=== PATIENT | male | born 1970 | race Caucasian/White ===

== ENCOUNTER 2025-04-21 14:26 | Outpatient (REF) | payer OTHER, SELFPAY ==
--- NOTE | 2025-04-21 | EMG_ITS ---
Chief complaint: Numbness on left fingers History of left carpal tunnel release 2019. History of ACDF, C5-6? Patient can not remember exact level. Reason for referral: Evaluate for ulnar neuropathy versus carpal tunnel Referred by: Analisa MARIEE Procedure done: Left upper extremity NCS/EMG Precautions and/or limitations: Previous cervical surgery The limb temperature was monitored continuously and remained between 32-36 degrees C during the performance of the NCS. Ulnar motor NCS was performed with moderate elbow flexion between 70-90 degrees, with across-elbow distance of 10 cm. Nerve Conduction Studies Anti Sensory Summary Table ?Stim Site NR Onset (ms) Norm Onset (ms) Peak (ms) Norm Peak (ms) O-P Amp (?V) Norm O-P Amp Site1 Site2 Delta-0 (ms) Dist (cm) Gorge (m/s) Norm Gorge (m/s) Left Median Anti Sensory (2nd Digit) Wrist ? 3.7 4.4 <3.6 24.9 >10 Wrist 2nd Digit 3.7 14.0 38 Left Radial Anti Sensory (Thumb) Forearm ? 1.6 2.2 <3.1 32.9 Forearm Thumb 1.6 0.0 Left Ulnar Anti Sensory (5th Digit) Wrist ? 2.9 3.8 <3.7 5.2 >15.0 Wrist 5th Digit 2.9 14.0 48 Motor Summary Table ?Stim Site NR Onset (ms) Norm Onset (ms) O-P Amp (mV) Norm O-P Amp iAmp (mV) Amp (1st) (%) Site1 Site2 Delta-0 (ms) Dist (cm) Gorge (m/s) Norm Gorge (m/s) Left Median Motor (Abd Poll Brev) Wrist ? 4.5 <3.9 11.6 >4.5 13.4 100.0 Elbow Wrist 3.7 21.0 57 >45 Elbow ? 8.2 11.8 14.3 101.7 Left Ulnar Motor (Abd Dig Minimi) Wrist ? 3.4 <3.0 8.3 >5 10.6 100.0 B Elbow Wrist 3.6 21.0 58 >45 B Elbow ? 7.0 6.6 8.6 79.5 A Elbow B Elbow 4.6 10.0 22 >45 A Elbow ? 11.6 7.2 8.6 86.7 EMG ?Side Muscle Nerve Root Ins Act Fibs Psw Amp Dur Poly Recrt Int Pat Comment Left 1stDorInt Ulnar C8-T1 Nml Nml Nml Nml Nml 0 Nml Complete Left FlexCarpiUln Ulnar C8,T1 Nml Nml Nml Nml Nml 0 Nml Complete Left Biceps Musculocut C5-6 Nml Nml Nml Nml Nml 0 Nml Complete Left Triceps Radial C6-7-8 Nml Nml Nml Incr Incr 0 Nml Complete Left Deltoid Axillary C5-6 Nml Nml Nml Incr Incr 0 Nml Complete FINDINGS: Left median motor nerve showed prolonged distal latency, normal amplitude and normal conduction velocity. Left ulnar motor nerve showed prolonged distal latency, normal amplitude and slow conduction velocity across the elbow. Left median sensory nerve showed prolonged peak latency. Left ulnar sensory nerve showed small amplitude and prolonged peak latency. All other nerves tested were within normal. Concentric needle EMG was performed in selected muscles of the left upper extremity. Study revealed signs of electric abnormalities as shown in the table above. Left deltoids and biceps showed increased duration and amplitude. IMPRESSION: 1. This is an abnormal study. 2. 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 3. There is electrodiagnostic evidence for left median neuropathy at the wrist. Comparison with pre-surgery EMG would be helpful. 4. Chronic reinnervation changes seen on C5-6 innervated muscles, suggesting either past or chronic C5-6 radiculopathy. CLINICAL COMMENT: Comparison with previous EMG would be helpful. Past EMG was not available for my review. Thank you for your kind referral. Maite Quevedo MD, DIONISIO Board Certified, [place] Board [employer] and Rehabilitation (ABPMR) Board Certified, [place] Board of Electrodiagnostic Medicine (ABEM) CODIN [id number] [facility]
--- OUTSIDE RECORDS SUMMARY | 2025-04-21 18:17 | XMS_ITS | Data Portability ---
Author Organization [place] [facility] Surgeons [facility], [facility] Address [address] [place] [address] Assessment Encounter Date Assessment Date Assessment LastModified by Organization Details LastModified Time 10/10/2023 10/10/2023 Chief Complaint: Left shoulder pain HPI: Michael is a 54-year-old right-hand dominant retired gentleman presenting with left shoulder pain. He believes the pain originated from an incident involving lifting a case of water incorrectly after his grandson struggled with it in early September 2023, roughly a month ago. He mentions that the pain is mostly localized in a specific area of his lateral shoulder. Michael expresses concerns about his ability to lift objects, noting that he tries to limit himself to lifting no more than 20 pounds due to his heart condition and other health issues. He admits to adjusting his lifestyle to accommodate these limitations, including how he carries groceries. He has occasional nighttime symptoms. No physical therapy or injection treatment for his shoulder. He has a past medical history of hypertension, cardiac disease, asthma and diabetes. He takes atorvastatin, metoprolol, albuterol, aspirin, lisinopril, Motrin, pro-air and metformin. He denies allergies to medications. He denies tobacco use. No personal or family history of blood clots. Past medical, surgical, family and social history; Medications, Allergies and 12-point review of systems have been reviewed, updated and charted. Physical Examination: Height and weight as noted in chart. Constitutional: Patient pleasant, well appearing and in NAD. Mental status: Patient is alert and oriented to person, place and time. No short-term memory deficits. Psychiatric: Mood and affect are appropriate. Head: Normocephalic and atraumatic. Exterior inspection of the ears and nose was unremarkable. Hearing grossly intact. Eyes: Sclera are not blue. servicer travel trailers II-XII are grossly intact. Full extraocular motion. Neck: Supple with age-appropriate ROM. No tracheal deviation. No obvious JVD. Respiratory: Non-labored breathing. Symmetric excursion. No audible wheezing or crackles. Skin: No rashes, lesions, wounds to the upper extremities. Normal turgor and coloration. Musculoskeletal: On examination of the left shoulder, there is no effusion, erythema or ecchymosis. Active shoulder elevation to 170 on the left compared 175 on the right. External rotation to 50 bilaterally. Internal rotation to the thoracolumbar junction. Negative belly press. 5/5 strength on rotator cuff testing. Positive impingement signs on the left. Mild acromial clavicular joint and biceps tenderness. Imaging: X-rays ordered, obtained and reviewed at [facility]. These images included Grashey, scapular and axillary views of the left shoulder. No acute fractures or dislocations. Normal glenoid humeral joint space. Moderate acromioclavicular joint arthrosis. Type II acromion. No os acromiale. Procedure: Injection of Steroid and Anesthetic, Subacromial Space All reasonable risks and benefits of injection were discussed. Risks include bleeding, infection, non-relief of symptoms, recurrence of symptoms, allergic type reaction, scarring, fat atrophy, and hyperglycemia. After obtaining consent, the left posterior shoulder was prepped in sterile fashion using an alcohol swab. The skin was anesthetized with ethyl chloride spray, wiped again with alcohol, and an injection of 1cc of Kenalog 40 and 4cc s of Lidocaine 1% was performed using a 22-gauge needle into the subacromial space. The medication flowed freely and the patient tolerated this procedure well. The patient was instructed to avoid strenuous activity following the injection for approximately 24 to 48 hours, and then a gradual return to normal activities is allowed. Impression and Plan: 54-year-old msoxy-gbja-hbsitogl retired male with a five-week history of left shoulder pain that began after straining his shoulder while catching a case of water from falling and overall history and examination consistent with left shoulder subacromial impingement/bursiti s. He has very good strength and rotator cuff assessment. I discussed etiology of the patient's symptoms with him at length today. I discussed options and recommended a conservative course. This included a subacromial injection of steroid to the symptomatic shoulder today that the patient tolerated very well. I stressed the importance of activity modification with avoidance of exacerbating activities including heavy lifting overhead or lifting heavy away from the body. I discussed good lifting mechanics. I also recommended a low-dose oral anti-inflammatory such as ibuprofen [id number] and/or Tylenol as needed. Should symptoms fail to improve and/or recur despite these conservative measures over the next 6-8 weeks, I recommend they call back for another visit. All questions and concerns were addressed. Today's visit involved examining the patient, reviewing the history, reviewing the radiographic studies, counseling the patient regarding treatment options, and the administrative tasks including placing orders, preparing patient information and home handouts and preparing the visit note. This note was generated with [facility] speech recognition laser printing operator dictation software. Please excuse any errors that may have been overlooked during review of this note. Sometimes, these errors may affect the content or meaning of a given sentence. Please call for corrections. [email or web address] Not available 10/10/2023 16:20:08 Plan of Treatment Reminders Order Date Submit Date Provider Last Modified By Organization Details Last Modified Time Details Appointments None recorded. Lab None recorded. Referral None recorded. Procedures None recorded. Surgeries None recorded. Imaging XR, shoulder, 2 or more view - rm 217 left shoulder johnson protocol 2023 024 [email or web address] Not available 4 17:22:19 Medication Orders None recorded. Patient TargetsNo targets recorded. Patient InstructionsNo instructions recorded. Reason for Referral None Reported. Procedures Surgical History Date Name Laterality Status Provider Name and Address Organization Details Recorded Time 4 Sports Shoulder completed Eder Thomas MD [address] [facility] [address], [place], [address], [facility] [place] [facility] 10/10/2023 16:20:04 Imaging Results None recorded. Procedure Notes None recorded. Medical Equipment None Reported. Medications Name Sig Start Date Stop Date Status Note LastModified by Organization Details LastModified Time cyclobenzapr ine 10 mg tablet TAKE 1 TABLET BY MOUTH THREE TIMES A DAY FOR 5 DAYS DO NOT DRINK ALCOHOL. MAY CAUSE DROWSINESS active Not Available Not Available N ot Available methocarbamo l 500 mg tablet TAKE 1 TABLET BY MOUTH AT BEDTIME NEEDED FOR OTHER (LUMBAR RADICULITIS ) FOR UP TO 21 DAYS. active Not Available Not Available No t Available atorvastatin 80 mg tablet TAKE 1 TABLET BY MOUTH EVERY DAY active Not Available Not Available No t Available ipratropium 0.5 mg-albuterol 3 mg (2.5 mg base)/3 mL nebulization soln USE 3 ML VIA NEBULIZER EVERY 6 HOURS NEEDED FOR COUGH OR WHEEZING active Not Available Not Available No t Available albuterol sulfate 2.5 mg/3 mL (0.083 %) solution for nebulization TAKE 1 VIAL BY NEBULIZATIO N EVERY 4 HOURS NEEDED FOR WHEEZING FOR UP TO 30 DAYS. active Not Available Not Available No t Available prednisone 20 mg tablet TAKE 3 TABLETS DAILY FOR 3 DAYS THEN 2 TABLETS DAILY FOR 3 DAYS, THEN 1 TABLET DAILY FOR 3 DAYS. active Not Available Not Available No t Available aspirin 81 mg tablet,delay ed release TAKE 1 TABLET BY MOUTH EVERY DAY active Not Available Not Available No t Available acetaminophe n ER 650 mg tablet,exten ded release TAKE 1 TABLET BY MOUTH EVERY 8 HOURS NEEDED FOR PAIN FOR UP TO 20 DAYS active Not Available Not Available N ot Available benzonatate 100 mg capsule TAKE 1 CAPSULE (ORAL) 3 TIMES PER DAY (COUGH) FOR 10 DAYS active Not Available Not Available Not Available lisinopril 5 mg tablet TAKE 1 TABLET BY MOUTH EVERY DAY active Not Available Not Available No t Available metoprolol succinate ER 25 mg tablet,exten ded release 24 hr TAKE 1/2 TABLET BY MOUTH EVERY DAY active Not Available Not Available No t Available albuterol sulfate HFA 90 mcg/actuatio n aerosol inhaler INHALE 2 PUFFS INTO THE LUNGS EVERY 6 HOURS NEEDED FOR COUGH OR WHEEZING. active Not Available Not Available No t Available ipratropium bromide 42 mcg (0.06 %) nasal spray USE 2 SPRAYS 3- TIMES A DAY INTO EACH NOSTRIL NEEDED FOR ALLERGY SYMPTOMS FOR 7 DAYS NEEDED active Not Available Not Available No t Available fluticasone propionate 50 mcg/actuatio n nasal spray,suspen param INHALE 2 SPRAY INN EACH NOSTRIL DAILY . active Not Available Not Available No t Available cholecalcife rol (vitamin D3) 1,250 mcg (50,000 unit) capsule active Not Available Not Available Not Available diclofenac 1 % topical gel APPLY 1 GRAM TOPICALLY 3 TIMES DAILY NEEDED (LUMBAR RADICULITIS ). active Not Available Not Available No t Available melatonin 5 mg tablet TAKE 1 TABLET BY MOUTH EVERYDAY AT BEDTIME active Not Available Not Available No t Available Easy Touch Twist Lancets 33 gauge active Not Available Not Available Not Available Anoro Ellipta 62.5 mcg-25 mcg/actuatio n powder for inhalation TAKE 1 PUFF BY MOUTH EVERY DAY active Not Available Not Available No t Available HealthPro Test Strips active Not Available Not Available Not Available Trulicity 1.5 mg/0.5 mL subcutaneous pen injector INJECT 1.5 MG INTO THE SKIN EVERY 7 DAYS active Not Available Not Available No t Available Trelegy Ellipta 100 mcg-62.5 mcg-25 mcg powder for inhalation INHALE 1 PUFF INTO THE LUNGS DAILY FOR 30 DAYS. active Not Available Not Available No t Available Mounjaro 7.5 mg/0.5 mL subcutaneous pen injector INJECT 7.5 MG SUBCUTANEOU SLY EVERY 7 DAYS active Not Available Not Available No t Available Mounjaro 5 mg/0.5 mL subcutaneous pen injector ADMINISTER 5 MG UNDER THE SKIN EVERY 7 DAYS active Not Available Not Available No t Available Mounjaro 2.5 mg/0.5 mL subcutaneous pen injector INJECT 2.5 MG INTO THE SKIN ONCE A WEEK FOR 4 DOSES. active Not Available Not Available No t Available Vitals None Recorded Social History None recorded. Functional Status None recorded. Mental Status None recorded. Family History Nothing Reported. Medical History No medical history recorded. Past Encounters Encounter ID Performer Location Encounter Start Date Encounter Closed Date Diagnosis/Indication Diagnosis SNOMED-CT Code Diagnosis ICD10 Code Diagnosis IMO Codes Diagnosis Note [id number] Eder Thomas MD [facility] [address]nd floor [address] [facility] [place] [address] 10/10/2023 15:02:03 11/05/2023 12:39:24 Pain of left shoulder joint [id number] M25.512 Impingemen t syndrome of left shoulder region [id number] 61788 M75.42 Health Concerns Section Related Observation LastModified by Organization Detai ls LastModified Time None Recorded Concern Status LastModified by Organization Details LastModified Time None Recorded Advance Directives Directive None Recorded Payers Insurance Date Sequence Insurance Name Policy Number Policy Dia Covered Member ID Dia Member ID Guarantor Name 11/05/2023 1 [facility] - DOS ON OR AFTER 2022 - RESIDENTIAL OPTIONS AND ONE CARE (MEDICARE REPLACEMENT/ADV ANTAGE - PPO) Michael Jones [id number] Michael Jones
--- OUTSIDE RECORDS SUMMARY | 2025-04-21 18:17 | XMS_ITS ---
Author Name [facility] Organization Unknown Care Team Organization Name Specialty Phone Email Start Date End Da te [facility] Yosvany Jimenez Primary [facility] 05/14/2022 02/23/20 24
== END 2025-04-21 14:27 | disposition home or self-care (01) ==
LOC: HO.NEURO 14:26
PROVIDERS: PCP Internal Medicine; Visit Provider Physician Assistant
DX: M79.642 Pain in left hand (principal); R20.0 Anesthesia of skin
CPT/HCPCS: 95886; 95909

== ENCOUNTER → 2025-04-21 14:30 | Outpatient (BNV) | payer OTHER, SELFPAY | PROVIDERS: PCP Internal Medicine; Visit Provider Physical Medicine & Rehabilitation | DX: G56.22 Lesion of ulnar nerve, left upper limb (principal); G62.89 Other specified polyneuropathies | CPT/HCPCS: 95886; 95909 ==

== ENCOUNTER 2025-05-31 12:56 | Outpatient (AMB) | payer OTHER, SELFPAY ==
--- NOTE | 2025-05-31 12:57 | A.PHYSOV ---
Vital Signs 05/31/25 13:02 Height 5 ft 10 in Weight 235 lb BMI 33.7 Intake Visit Reasons: F/U after injection 05/02/2025 Intake Note: Patient is a 55 year old male in office for a follow up after Bilateral L5 Transforaminal Epidural Injection on 05/02/25 Laundry Equipment Operator Required: No Allergies No Known Allergies Allergy (Verified 05/31/25 13:02) HPI Comments Details: History of Present Illness The patient is a 55-year-old individual presenting with persistent lower back pain radiating to both legs. The pain is primarily reported with standing and has been persistent despite previous interventions. The patient has responded well to lumbar epidural injections, specifically bilateral L5 transforaminal injections, which have provided 80 to 90% pain relief since December 2022. The most recent procedure was performed on May 02, 2025. He reports 90% reduction of his pain. He has been getting procedures with conscious sedation. A review of the lumbosacral spine MRI from February 27, 2019, shows degenerative changes at the L5-S1 level with moderate to severe bilateral neural foraminal narrowing. The patient also reports a history of carpal tunnel syndrome, with symptoms of numbness and trigger finger. He recently had electrodiagnostic evaluation. Pain Description - Onset: Persistent lower back pain radiating to both legs - Quality: Pain primarily reported with standing - Relief: 80 to 90% pain relief with bilateral L5 transforaminal injections Results - Imaging: Lumbosacral spine MRI from February 27, 2019, shows degenerative changes at L5-S1 with moderate to severe bilateral neural foraminal narrowing [facility] Medical History (Updated 05/31/25 @ 13:16 by Vidal Barboza DO) Lumbar radiculitis Spinal stenosis, lumbar region with neurogenic claudication Surgical History History of coronary artery stent placement S/P cervical spinal fusion Social History Household Members: None Alcohol intake: current Alcohol intake frequency: does not drink Use of substances other than those prescribed or required for medical reasons: No Current occupational status: disabled Review of Systems Narrative Review of Systems - Musculoskeletal: Reports persistent lower back pain radiating to both legs - Neurological: Reports numbness and trigger finger related to carpal tunnel syndrome Denies change in bowel bladder habits, denies any fever or chills, denies uncontrolled depression or suicidal ideation Physical Exam Exam Exam: Physical Exam Patient appears to be in no acute distress, appropriately conversant oriented. He ambulates without antalgia. He was able to perform heel walk and toe walk with support for balance. Neurological examination was nonfocal. He demonstrated no upper motor neuron signs. Lumbar extension was restricted. SI provocative maneuvers were negative. Dural tension signs were negative Vital Signs: BMI result Body Mass Index 33.7 Assessment & Plan Assessment & Plan (1) Spinal stenosis, lumbar region with neurogenic claudication: Code(s): M48.062 - Spinal stenosis, lumbar region with neurogenic claudication Category: Medical (2) Lumbar radiculitis: Code(s): M54.16 - Radiculopathy, lumbar region Category: Medical Plan Pain Management - Affect: Pain impacts standing activities - Analgesia: Bilateral L5 transforaminal injections provide 80 to 90% relief - Activities of Daily Living: Pain primarily affects standing Plan Patient was informed and verbally consented to the use of an ambient scribe for clinic note documentation during this visit. 1. Chronic Lower Back Pain With Radiculopathy The patient will continue with lumbar epidural injections as they have been effective in providing significant pain relief. Future injections will be scheduled at [facility] with sedation as needed. 2. Degenerative Disc Disease At L5-S1 The degenerative changes at L5-S1 will be monitored, and the patient will be advised to continue with current pain management strategies. 3. Carpal Tunnel Syndrome The patient reports numbness and trigger finger, which will be monitored for any progression or need for further intervention. Discussion Notes I discussed with the patient the effectiveness of the lumbar epidural injections and the plan to continue them at [facility] with sedation as needed. We reviewed the MRI findings showing degenerative changes at L5-S1 and agreed to monitor these changes while continuing current pain management strategies. The patient was informed about the symptoms of carpal tunnel syndrome and advised to monitor for any progression. Injections will be repeated in the future. I do not recommend any interventional procedures at this time. Patient will follow up as needed. Patient Instructions - Continue with lumbar epidural injections as scheduled. - Monitor symptoms of carpal tunnel syndrome and report any changes. - Follow up with the clinic for future injection appointments at [facility]. Coding Level of Care Code Est Pt Level 3 (23756) Complex visit Add On G2211 Diagnoses Spinal stenosis, lumbar region with neurogenic claudication M48.062 Lumbar radiculitis M54.16
[2025-05-31 13:02] VITALS: BMI 33.7
--- OUTSIDE RECORDS SUMMARY | 2025-05-31 16:39 | XMS_ITS | Data Portability ---
Author Organization [place] [facility] Surgeons [facility], [facility] Address [address] [place] [address] Assessment Encounter Date Assessment Date Assessment LastModified [...] grossly intact. Eyes: Sclera are not blue. director clinical applications II-XII are grossly intact. Full extraocular motion. [...] Imaging: X-rays ordered, obtained and reviewed at [facility]. These images included Grashey, scapular and [...] activities is allowed. Impression and Plan: 54-year-old vyogb-vmta-fjlwazlo retired male with a five-week history of [...] a low-dose oral anti-inflammatory such as ibuprofen mnhl-koq-glhnibu and/or Tylenol as needed. Should symptoms fail [...] visit note. This note was generated with [facility] speech recognition asphalt plant operator dictation software. Please excuse any errors that may have been overlooked during review of this note. Sometimes, these errors may affect the content or meaning of a given sentence. Please call for corrections. Not available 10/10/2023 16:20:08 Plan of Treatment [...] Sports Shoulder completed Eder Thomas MD [address] [facility] [address], [place], [address], [facility] [place] [facility] 10/10/2023 16:20:04 Imaging Results None recorded. Procedure [...] ICD10 Code Diagnosis IMO Codes Diagnosis Note [id number] Eder Thomas MD [facility] 2[facility] [address] [facility] [address] [facility] [place] [address] 10/10/2023 15:02:03 11/05/2023 12:39:24 Pain of left shoulder joint [id number] M25.512 Impingemen t syndrome of left shoulder region [id number] 99727 M75.42 Health Concerns Section Related Observation LastModified by Organization Detai ls LastModified Time None Recorded Concern Status LastModified by Organization Details LastModified Time None Recorded Advance Directives Directive None Recorded Payers Insurance Date Sequence Insurance Name Policy Number Policy Dia Covered Member ID Dia Member ID Guarantor Name 11/05/[address] [facility] - DOS ON OR AFTER 2022 - ALF OPTIONS AND ONE CARE (MEDICARE REPLACEMENT/ADV ANTAGE - PPO) Michael Jones [id number] Michael Jones
== END 2025-05-31 13:22 | disposition home or self-care (01) ==
LOC: HO.HPHYS 12:57
PROVIDERS: PCP Internal Medicine; Visit Provider Physical Medicine & Rehabilitation
DX: M48.062 Spinal stenosis, lumbar region with neurogenic claudication (principal); M54.16 Radiculopathy, lumbar region
CPT/HCPCS: 99213; G2211

== ENCOUNTER → 2025-05-31 12:56 | Outpatient (BNVA) | payer OTHER, SELFPAY | PROVIDERS: PCP Internal Medicine; Visit Provider Physical Medicine & Rehabilitation | DX: M48.062 Spinal stenosis, lumbar region with neurogenic claudication (principal); M51.17 Intervertebral disc disorders with radiculopathy, lumbosacral region; G89.29 Other chronic pain | CPT/HCPCS: 99212 ==